=== PATIENT | male | born 1955 | race Caucasian/White ===

== ENCOUNTER 2016-09-17 06:41 | Outpatient (CLI) | payer OTHER ==
[~2016-09-17] VITALS: Ht 193 cm; Wt 115.5 kg
--- NOTE | ~2016-09-17 | OR ---
PATIENT'S NAME: [facility] AGE: 61 Y [address] ROOM: [place] [address] LOCATION: GPCU ADMIT DATE: 09/17/2016 OR/Procedure Report DISCHARGE DATE: 09/18/2016 FAMILY PHYSICIAN: Lit Ferris MD ATTENDING PHYSICIAN: Santana Machuca SURGEON: Santana Machuca MD BRUSH MATERIAL PREPARER: DATE OF PROCEDURE: 09/17/2016 INDICATION: Symptomatic sick sinus syndrome PROCEDURE: Dual chamber pacemaker implantation PROCEDURE/FINDINGS: Mr. Moreno was brought to the cardiac crime lab analyst in the fasting state and prepped and draped in the normal manner. 1% lidocaine was used for local skin infiltration in the left infraclavicular region. Subsequently an 18 gauge Cook needle was advanced into the left subclavian vein through which an 0.025 wire was placed. Needle was removed. Proximal end of the wire was attached to the surgical gown with a hemostat. A second access point was also obtained with an 18 gauge Cook needle. 0.025 wire was placed. Needle was removed. Proximal end of the wire was attached to the surgical drape with a hemostat. Attention was then turned towards creation of the pacemaker pocket where additional 1% lidocaine was given. Next, a #11 blade was used for primary skin incision. Following this blunt dissection as well as Bovie cautery was used for identifying the pectoralis fascia. This was entered into and dissected both cephalad as well as caudally. Following this the previously placed 0.025 wires were brought through the skin into the pacemaker pocket. The first wire had a 7F sheath placed onto it. Wire and dilator were removed. Using fluoroscopic guidance, right ventricular lead was placed. This is a [place] [employer] lead, model #7742, serial #[id number]. Thresholds were obtained showing a sensing R wave of 10.9 mV, threshold 1.1 V at 0.5 milliseconds pulse, impedance of 690 ohms. Next, the shoulder sleeve was sewn into the pectoralis muscle using two interrupted sutures of zero of Silk. Following this, a 7F sheath was placed on the remaining wire. Wire and dilator were removed. Using fluoroscopic guidance, the right atrial lead was placed. This is a [place] [employer] INGEVITY, model #7741, serial #[id number]. Thresholds were obtained showing an intrinsic P wave of 3.3 mV, threshold 0.5 at 0.4 milliseconds pulse width, impedance of 678 ohms. The anchor sleeve was sewn into the pectoralis muscle using two interrupted sutures of zero of Silk. Following this both of these leads were then connected to the pacemaker generator. This is a [place] [employer] ESSENTIO, model L111, serial #[id number]. PATIENT'S NAME: [facility] AGE: 61 Y [address] ROOM: [place] [address] LOCATION: GPCU ADMIT DATE: 09/17/2016 OR/Procedure Report DISCHARGE DATE: 09/18/2016 FAMILY PHYSICIAN: Lit Ferris MD ATTENDING PHYSICIAN: Santana Machuca The generator with the connected leads were then placed into the pacemaker pocket. Overlying subcutaneous tissue was closed with 2-0 Vicryl in a running fashion. Following this, subcuticular layer was closed with 4.0 Vicryl also in a running fashion. Steri-strips were applied as well as pressure dressing and Tegaderm dressing. Patient was transferred to the postop recovery area in stable condition with a shoulder immobilizer in place. CONCLUSION: 1. Dual chamber pacemaker implantation for symptomatic sick sinus syndrome. 2. Patient is instructed to wear the shoulder immobilizer for one week. 3. Chest x-ray is pending at the time of this dictation. 4. MD DOUGIE MENDES/debbi /[id number] CC: Printer CARDIOPULCompliance ScienceARY d: 09/22/16 1054 t: 09/23/16 1343, OPERATIVE SUMMARY
[~2016-09-17 06:41] MED LIST: ADVAIR 250-501 EACH INH; ALEVE220 MG PO; ASPIRIN LO-DOSE81 MG PO; COQ-10100 MG PO; FLOMAX0.4 MG PO; FLONASE 50 MCG/16 GM NOSE; GLUCOPHAGE1000 MG PO; GLUCOPHAGE500 MG PO; GLUCOTROL10 MG PO; LANTUS (IN100 UNIT/M SUB-Q; LOPRESSOR25 MG PO; LOPRESSOR50 MG PO; MAGNESIUM500 MG PO; MAXALT10 MG PO; METOCLOPRAMIDE H5 MG PO; MULTI VITAMIN1 EACH PO; NEURONTIN300 MG PO; NITROGLYCERIN0.4 M1 TRANS; NITROSTAT0.4 MG SL; OXYGEN M-15 INH; PLAVIX75 MG PO; PROAIR HFA8.5 GM INH; PROTONIX40 MG PO; TYLENOL EXTRA500 MG PO; VASOTEC2.5 MG PO; VASOTEC5 MG PO; ZOLOFT100 MG PO; ZYRTEC10 M3 PO
[2016-09-17] MEDS ORDERED: PRALUENT P75 MG/1 ML SUB-Q (08:05)
--- NOTE | 2016-09-17 16:54 | NUR ---
Significant Event: TO PCU FROM PACU AT 1230 FOLLOWING DUAL CHAMBER PACEMAKER INSERTION. LT)UPPER CHEST DRESSING REMAINS C/D/I. UP TO VOID X1. DENIES NEED FOR PAIN MED. IMMOBILIZER TO LT)ARM. RESTS WELL. Follow up: CONTINUE PLAN OF CARE; D/C HOME TRMW.
--- NOTE | 2016-09-18 03:31 | NUR ---
Pt a/o x4. up adlib. VSS on RA, Afbrile. Roughly 2330 pt had prolonged period of questionably vpaced vs vtach. According to EKG it was Vpaced rhythm with rates 110's. Pt became symptomatic with light headedness and chest pain. MD was called. 250 NS bolus was given and started pt on fluids at 125ml/hr. No labs were ordered. Pt also had a low blood sugar right before vpaced incident-68. corrected with crackers and peanut butter. Pt informed he can no longer be up adlib and needs to call before getting out of bed/chair. Plan: ? d/c today
--- NOTE | 2016-09-18 05:45 | NUR ---
Significant Event: Patient is alert/oriented x3. Vital signs stable. Patient did flip in/out of rhythm he experienced earlier around 2330. He remained asymptomatic and did not sustain. Pacemaker site is covered with dressing, clean/dry/intact. Denies any pain. On 2L O2 (wears only at night). Follow up: Pacemaker needs interrogated. Possible dismissal to home today.
--- NOTE | 2016-09-18 11:33 | NUR ---
PATIENT IS A/OX3, VSS ON ROOM AIR, WEARS 2L O2 @ NIGHT. NO COMPLAINTS OF PAIN. SLING TO LEFT ARM INTACT. PACEMAKER SITE INCISION IS COVERED WITH TELFA/TEGADERM DRESSING-C/D/I. PT. GETS UP SBA IN ROOM. NO EPISODES SINCE LAST NIGHT WITH PACEMAKER. PACER REP IN THIS AM SAYS PACER LOOKING FINE. DISMISSAL & POST PACEMAKER INSTRUCTIONS GONE OVER WITH PATIENT, PT. INSTRUCTED TO RESTART HOME PLAVIX DOSE TOMORROW, NO NEW MEDICATION CHANGES. NO FURTHER QUESTIONS AT THIS TIME. IV REMOVED FROM LEFT HAND WITHOUT ANY COMPLICATIONS. ALL BELONGINGS AND HOME INHALERS SENT HOME WITH PATIENT.
== END 2016-09-18 11:20 | disposition disaster alternative care site (69) ==
LOC: GPCU 06:41 → GCAT 06:41 → GPOC 07:00 → GPCU 12:04 → GCAT 09-18 11:20
DX: I49.5 Sick sinus syndrome (principal); I25.10 Atherosclerotic heart disease of native coronary artery without angina pectoris; I10 Essential (primary) hypertension; E11.9 Type 2 diabetes mellitus without complications; Z79.4 Long term (current) use of insulin; Z79.84 Long term (current) use of oral hypoglycemic drugs; E78.5 Hyperlipidemia, unspecified; Z79.899 Other long term (current) drug therapy
CPT/HCPCS: C1769; C1785; C1898; J2001; J2250; J3010; J3370; J7030